=== PATIENT | female | born 1995 | race Two or more races ===

== ENCOUNTER 2016-09-18 16:07 | Emergency (ER) | payer MEDICAID ==
[2016-09-18] MEDS ORDERED: ACETAMINOPHEN 325 MG TABLET PO STA (16:58)
[2016-09-18] MEDS ORDERED: AMOXICILLIN 250 MG CAPSULE PO STA (16:58)
[2016-09-18] MEDS ORDERED: ONDANSETRON ODT 4 MG TABLET TL STA (16:58)
[2016-09-18] MEDS ORDERED: ACETAMINOPHEN 325 MG TABLET PO ONE (17:02)
[2016-09-18] MEDS ORDERED: AMOXICILLIN 250 MG CAPSULE PO ONE (17:02)
[2016-09-18] MEDS ORDERED: ONDANSETRON ODT 4 MG TABLET ONE (17:02)
== END 2016-09-18 18:20 | disposition home or self-care (01) ==
DX: S06.0X0A Concussion without loss of consciousness, initial encounter (principal); S00.03XA Contusion of scalp, initial encounter; W06.XXXA Fall from bed, initial encounter; Y93.89 Activity, other specified; Y92.003 Bedroom of unspecified non-institutional (private) residence as the place of occurrence of the external cause; Y99.8 Other external cause status; H66.001 Acute suppurative otitis media without spontaneous rupture of ear drum, right ear; J01.80 Other acute sinusitis
CPT/HCPCS: 70450; 99283; 99284; A9270; Q0162

== ENCOUNTER 2016-12-15 15:45 | Emergency (ER) | payer MEDICAID ==
[2016-12-15] MEDS ORDERED: predniSONE 20 MG TABLET PO STA (15:56)
[2016-12-15] MEDS ORDERED: predniSONE 20 MG TABLET ONE (15:57)
== END 2016-12-15 16:23 | disposition home or self-care (01) ==
DX: L25.9 Unspecified contact dermatitis, unspecified cause (principal); R03.0 Elevated blood-pressure reading, without diagnosis of hypertension
CPT/HCPCS: 99283; J7512

== ENCOUNTER 2016-12-17 13:45 | Emergency (ER) | payer OTHER, MEDICAID ==
[2016-12-17] MEDS ORDERED: HYDROcod/ACETAM 5/325 MG TABLET PO STA (15:24)
[2016-12-17] MEDS ORDERED: CYCLOBENZAPRINE 10 MG TABLET PO STA (15:24)
[2016-12-17] MEDS ORDERED: CYCLOBENZAPRINE 10 MG TABLET PO ONE (15:29)
[2016-12-17] MEDS ORDERED: HYDROcod/ACETAM 5/325 MG TABLET ONE (15:29)
[2016-12-17] MEDS ORDERED: ONDANSETRON ODT 4 MG TABLET TL STA (15:40)
[2016-12-17] MEDS ORDERED: ONDANSETRON ODT 4 MG TABLET ONE (15:41)
== END 2016-12-17 15:45 | disposition home or self-care (01) ==
DX: S16.1XXA Strain of muscle, fascia and tendon at neck level, initial encounter (principal); S40.011A Contusion of right shoulder, initial encounter; V43.62XA Car passenger injured in collision with other type car in traffic accident, initial encounter; Y92.488 Other paved roadways as the place of occurrence of the external cause
CPT/HCPCS: 99283; A9270; Q0162

== ENCOUNTER 2017-01-26 11:05 | Outpatient (CLI) | payer MEDICAID ==
--- NOTE | 2017-01-26 16:36 | XRAY Report ---
THREE VIEW LUMBAR SPINE: 01/26/2017 CLINICAL INDICATION: Back pain, chronic. FINDINGS: AP, lateral, and coned down views of the lumbar spine demonstrate normal height and alignm ent of the vertebral bodies. The disk spaces are preserved. There is no evidence of fracture or sublu xation. IMPRESSION: NORMAL LUMBAR SPINE. JOB #: [id number] EXT JOB #:[id number]
== END 2017-01-26 11:06 | disposition home or self-care (01) ==
LOC: DI.N 11:05
PROVIDERS: ATTEND Physician Assistant
DX: M54.5 Low back pain (principal)
CPT/HCPCS: 72100

== ENCOUNTER 2017-05-02 22:04 | Outpatient (CLI) | payer MEDICAID | END 2017-05-02 22:05 | disposition EMS.NT | LOC: EMS 22:04 | PROVIDERS: ATTEND Surgery | DX: Z04.1 Encounter for examination and observation following transport accident (principal); V49.50XA Passenger injured in collision with unspecified motor vehicles in traffic accident, initial encounter ==

== ENCOUNTER 2017-05-03 00:23 | Emergency (ER) | payer OTHER, MEDICAID ==
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
[2017-05-03] MEDS ORDERED: IBUPROFEN 600 MG TABLET PO STA (02:10)
[2017-05-03] MEDS ORDERED: IBUPROFEN 600 MG TABLET PO ONE (02:15)
--- NOTE | 2017-05-03 02:23 | XRAY Preliminary Report ---
Exam: XR Elbow 3 View LT IMPRESSION: Normal elbow radiography. [facility] SITE ID: [id number]
[2017-05-03 02:26] VITALS: BP 120/70
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
== END 2017-05-03 02:26 | disposition home or self-care (01) ==
LOC: ED 00:23
DX: S53.402A Unspecified sprain of left elbow, initial encounter (principal); V49.50XA Passenger injured in collision with unspecified motor vehicles in traffic accident, initial encounter; Y92.481 Parking lot as the place of occurrence of the external cause
CPT/HCPCS: 73080; 99282; 99283; A9270

== ENCOUNTER 2017-11-03 08:00 | Outpatient (CLI) | payer MEDICAID ==
[2017-11-03 12:32] LABS: BASOPHILS % (AUTO) 0.5 %; EOSINOPHILS # (AUTO) 0.1 10^3/uL (0.0-0.7); EOSINOPHILS % (AUTO) 1.3 %; HGB - HEMOGLOBIN 13.6 g/dL (12.0-16.0); LYMPHOCYTES # (AUTO) 2.9 10^3/uL (1.5-3.5); LYMPHOCYTES % (AUTO) 36.1 %; MEAN CORPUSCULAR HEMOGLOBIN 29.2 pg (27.0-31.0); MEAN CORPUSCULAR HGB CONC 34.1 g/dL (32.0-36.0); MEAN CORPUSCULAR VOLUME 85.9 fL (81.0-99.0); MONOCYTES # (AUTO) 0.6 10^3/uL (0.0-1.0); MONOCYTES % (AUTO) 6.9 %; NEUTROPHILS # (AUTO) 4.5 10^3/uL (1.5-6.6); NEUTROPHILS % (AUTO) 55.2 %; PLT - PLATELET COUNT 283 10^3/uL (130-450); RED BLOOD COUNT 4.66 10^6/uL (4.20-5.40); RED CELL DISTRIBUTION WIDTH 13.1 % (12.0-15.0); WHITE BLOOD COUNT 8.1 x10^3/uL (4.8-10.8)
[2017-11-03 14:16] LABS: ALBUMIN 4.1 g/dL (3.2-5.5); ALBUMIN/GLOBULIN RATIO 1.3 (1.0-2.2); ALKALINE PHOSPHATASE 69 IU/L (42-121); ALT ALANINE AMINOTRANSFERASE 49 IU/L (10-60); AST ASPARTATE AMINOTRANSFERASE 33 IU/L (10-42); BILIRUBIN,TOTAL 0.5 mg/dL (0.2-1.0); BUN - BLOOD UREA NITROGEN 10 mg/dL (6-20); CALCIUM 9.6 mg/dL (8.5-10.3); CARBON DIOXIDE - CO2 25 mmol/L (21-32); CHLORIDE 103 mmol/L (101-111); CHOL/HDL RATIO 2.7 (<4.4); CHOLESTEROL 199 mg/dL; CREATININE 0.7 mg/dL (0.4-1.0); GFR - MDRD 105 (>89); GLUCOSE 89 mg/dL (70-100); HDL CHOLESTEROL 73 mg/dL; LDL CHOLESTEROL,CALCULATED 107 mg/dL; LDL/HDL RATIO 1.5 (<4.4); SODIUM 138 mmol/L (135-145); TOTAL PROTEIN 7.3 g/dL (6.7-8.2); VLDL CHOLESTEROL 19 mg/dL
== END 2017-11-03 08:01 ==
LOC: LAB.N 08:00
PROVIDERS: ATTEND Family Medicine
DX: E66.9 Obesity, unspecified (principal)
CPT/HCPCS: 36415; 80053; 80061; 83721; 84443; 85025

== ENCOUNTER 2017-11-15 22:07 | Emergency (ER) | payer MEDICAID ==
[2017-11-15 22:12] VITALS: BP 122/89
--- NOTE | 2017-11-15 22:38 | ED Physician Documentation ---
PD HPI URI - Stated complaint Stated Complaint: SINUS PRESSURE - Chief complaint Chief Complaint: Heent - History obtained from History obtained from: Patient - History of Present Illness Timing - onset: How many days ago (few days of sinus congestion, drainage, pressure and feverish. Had had some URI symptoms prior to that and now all sinus.) Timing duration: Days Timing details: Gradual onset, Still present Associated symptoms: Fever, Nasal congestion, Sinus pain. No: Dry cough, Hemoptysis, Chest pain Similar symptoms before: Has not had sx before Recently seen: Not recently seen Review of Systems Constitutional: reports: Myalgias, Fatigue. denies: Fever, Chills Nose: reports: Sinus pressure / pain Throat: reports: Sore throat. denies: Oral lesions / sores Cardiac: denies: Chest pain / pressure Respiratory: denies: Dyspnea, Cough GI: reports: Nausea. denies: Abdominal Pain, Vomiting, Diarrhea PD PAST MEDICAL HISTORY - Past Medical History Past Medical History: Yes Neuro: Headache/migraine - Past Surgical History Past Surgical History: Yes Ortho: ACL reconstruction HEENT: Tonsil/Adenoidectomy - Present Medications Home Medications: Ambulatory Orders Medication Instructions Recorded Confirmed Cetirizine [ZyrTEC] 10 mg PO DAILY #15 tablet 11/15/17 Dexamethasone [Decadron] 4 mg PO DAILY #5 tablet 11/15/17 Doxycycline Monohydrate 100 mg PO BID #14 tablet 11/15/17 - Allergies Allergies/Adverse Reactions: Allergies Allergy/AdvReac Type Severity Reaction Status Date / Time No Known Drug Allergies Allergy Verified 11/15/17 22:12 - Social History Does the pt smoke?: No Smoking Status: Never smoker Does the pt drink ETOH?: Yes Does the pt have substance abuse?: No - Immunizations Immunizations are current?: Yes - POLST Patient has POLST: No PD ED PE NORMAL - Vitals Vital signs reviewed: Yes - General General: Alert and oriented X 3, No acute distress, Well developed/nourished - HEENT HEENT: Ears normal, Moist mucous membranes, Pharynx benign, Other (some sinus tenderness to percussion in maxillary areas. ) - Neck Neck: Supple, no meningeal sign, No adenopathy - Cardiac Cardiac: RRR, No murmur - Respiratory Respiratory: Clear bilaterally - Derm Derm: Normal color, Warm and dry, No rash - Neuro Neuro: Alert and oriented X 3, No motor deficit, Normal speech Results - Vitals Vitals: Oxygen O2 Source Room air PD MEDICAL DECISION MAKING - ED course Complexity details: considered differential, d/w patient Departure - Departure Disposition: 01 Home, Self Care Clinical Impression: Acute sinusitis Qualifiers: Sinusitis location: pansinusitis Recurrence: non-recurrent Qualified Code(s): J01.40 - Acute pansinusitis, unspecified Condition: Stable Record reviewed to determine appropriate education?: Yes Instructions: ED Sinusitis Abx Tx Prescriptions: Cetirizine [ZyrTEC] 10 mg PO DAILY #15 tablet Dexamethasone [Decadron] 4 mg PO DAILY #5 tablet Doxycycline Monohydrate 100 mg PO BID #14 tablet Comments: Drink lots of fluids. Tylenol or ibuprofen if needed for pains or fevers. Doxycycline antibiotic twice daily for a week. Dexamethasone steroid anti- inflammatory daily for 5 more days. Cetirizine antihistamine to decrease fluid and congestion daily for 1-2 weeks. Recheck if not improving over the next several days. Discharge Date/Time: 11/15/17 23:08
[2017-11-15] MEDS ORDERED: DOXYCYCLINE 100 MG TABLET PO STA (22:49)
[2017-11-15] MEDS ORDERED: CETIRIZINE 10 MG TABLET PO STA (22:49)
[2017-11-15] MEDS ORDERED: ACETAMINOPHEN 325 MG TABLET PO STA (22:49)
[2017-11-15] MEDS ORDERED: DEXAMETHASONE 10 MG/ML VIAL PO STA (22:49)
== END 2017-11-15 23:08 | disposition home or self-care (01) ==
LOC: ED 22:07
DX: J01.40 Acute pansinusitis, unspecified (principal)
CPT/HCPCS: 99283; A9270

== ENCOUNTER 2018-07-26 21:30 | Emergency (ER) | payer MEDICAID ==
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
[2018-07-27] MEDS: IBUPROFEN 400 MG TABLET PO STA (00:25)
[2018-07-27 00:56] LABS: HCG UR QUAL NEGATIVE
--- NOTE | 2018-07-27 01:00 | XRAY Report ---
Reason: chest pain Procedure Date: 07/27/2018 Accession Number: [id number] / [id number] Procedure: XR - Chest 2 View X-Ray CPT Code: 49125 FULL RESULT: EXAM: CHEST RADIOGRAPHY EXAM DATE: 07/27/2018 12:35 AM. CLINICAL HISTORY: Chest pain. COMPARISON: None. TECHNIQUE: 2 views. FINDINGS: Lungs/Pleura: No focal opacities evident. No pleural effusion. No pneumothorax. Normal volumes. Mediastinum: Heart and mediastinal contours are unremarkable. Other: None. IMPRESSION: Normal 2-view chest radiography. [facility]
[2018-07-27 02:24] VITALS: BP 122/68
== END 2018-07-27 02:37 | disposition home or self-care (01) ==
LOC: ED 21:30
DX: R07.9 Chest pain, unspecified (principal); R05 Cough
CPT/HCPCS: 71046; 81025; 93005; 99283; 99284